=== PATIENT | female | born 1990 | race African-American/Black ===

== ENCOUNTER 2021-01-16 05:50 | Emergency (ER) | payer OTHER, SELFPAY ==
[2021-01-16 06:33] LABS: Absolute Lymphocytes (CBC) 2.1 K/uL (0.7-4.9); Basophils % 0.5 % (0-1.3); Hematocrit 33.8 % (36.0-45.0); Lymphocytes % 26.2 % (15.3-44.8); MPV 9.4 fL (7.6-11.3); RBC Red Blood Cell Count 4.07 M/uL (3.86-4.86)
[2021-01-16] MEDS ORDERED: ACETAMINOPHEN 500 MG TAB ONE (06:40)
[2021-01-16 06:45] LABS: Urine Blood NEGATIVE (NEG); Urine Glucose NEGATIVE (NEG); Urine Protein NEGATIVE (NEG); Urine Specific Gravity 1.025 (1.005-1.030); Urine pH 6.5 (5.0-7.0)
[2021-01-16 06:56] LABS: Urine Bacteria <20 /HPF (<20); Urine RBC <5 /HPF (NONE SEEN)
[2021-01-16 07:10] LABS: BUN Blood Urea Nitrogen 6 mg/dL (7-18); Bicarbonate 21 mmol/L (21-32); Glucose Level 85 mg/dL (74-106); HCG, Quantitative 78921 mIU/mL (1-3); Potassium 3.6 mmol/L (3.5-5.1); Sodium Level 138 mmol/L (136-145)
--- NOTE | 2021-01-16 08:23 | RAD REPORT ---
EXAM DESCRIPTION: US - Transvaginal OB - 01/16/2021 7:35 am CLINICAL HISTORY: lower back pain;Abd cramping, Pelvic pain COMPARISON: No comparisons FINDINGS: A single gestational sac is seen within the uterus. The shape of the sac is within normal limits for gestational age. Within the sac is a single pole with crown-rump length of 16 mm, co rrelating to estimated gestational age of 7 weeks 6 days. Estimated date of delivery is 08/29/2021. Heart rate is 146 BPM. Small right-sided subchorionic bleed measuring 3 x 1 cm. The placenta is not yet developed due to early gestational age. The maternal adnexa and ovaries are within normal limits. Normal Doppler blood flow was demonstrated to both ovaries. IMPRESSION: Single live early intrauterine gestation with estimated gestational age of 7 weeks 6 day s, DYLAN 08/29/2021. Small subchorionic bleed.
--- NOTE | 2021-01-16 09:19 | EDPHYS ---
Physician Documentation [facility] Name: Argentina Vela Age: 30 yrs Sex: Female : 1990 Arrival Date: 01/16/2021 Time: 05:53 Bed 8 Private MD: ED Physician Michele Graham HPI: 01/16 06:56 This 30 yrs old Black Female presents to ER via Ambulatory with complaints of Back Pain.mh7 06:57 The patient presents to the emergency department with abdominal pain, of the suprapubic mh7 area, right lower quadrant and left lower quadrant and low back area. 06:57 The estimated gestational age is 8 weeks. course: care: none, mh7 Leakage of Fluid: none appreciated, Ultrasound: the patient has not had an ultrasound, Risk/complications: no obvious risks or complications are appreciated. Previous pregnancies: in previous pregnancies patient has had vaginal delivery, no complications. Associated signs and symptoms: Pertinent positives: abdominal pain, lower back pain, Pertinent negatives: chest pain, diarrhea, dysuria, fever, frequency, nausea, ruptured membranes, seizure, shortness of breath, vaginal bleeding, vaginal discharge. 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 - Social history:: Smoking status: Patient denies any tobacco usage or history of. ROS: 07:00 Constitutional: Negative for fever, chills, and weight loss, Eyes: Negative for injury, mh7 pain, redness, and discharge, ENT: Negative for injury, pain, and discharge, Neck: Negative for injury, pain, and swelling, Cardiovascular: Negative for chest pain, palpitations, and edema, Respiratory: Negative for shortness of breath, cough, wheezing, and pleuritic chest pain, : Negative for injury, bleeding, discharge, and swelling, MS/Extremity: Negative for injury and deformity, Skin: Negative for injury, rash, and discoloration, Neuro: Negative for headache, weakness, numbness, tingling, and seizure, Psych: Negative for depression, anxiety, suicide ideation, homicidal ideation, and hallucinations, Allergy/Immunology: Negative for hives, rash, and allergies, Endocrine: Negative for neck swelling, polydipsia, polyuria, polyphagia, and marked weight changes, Hematologic/Lymphatic: Negative for swollen nodes, abnormal bleeding, and unusual bruising. Exam: 07:00 Constitutional: This is a well developed, well nourished patient who is awake, alert, mh7 and in no acute distress. Head/Face: Normocephalic, atraumatic. Eyes: Pupils equal round and reactive to light, extra-ocular motions intact. Lids and lashes normal. Conjunctiva and sclera are non-icteric and not injected. Cornea within normal limits. Periorbital areas with no swelling, redness, or edema. Neck: Trachea midline, no thyromegaly or masses palpated, and no cervical lymphadenopathy. Supple, full range of motion without nuchal rigidity, or vertebral point tenderness. No Meningismus. Chest/axilla: Normal chest wall appearance and motion. Nontender with no deformity. No lesions are appreciated. Cardiovascular: Regular rate and rhythm with a normal S1 and S2. No gallops, murmurs, or rubs. Normal PMI, no JVD. No pulse deficits. Respiratory: Lungs have equal breath sounds bilaterally, clear to auscultation and percussion. No rales, rhonchi or wheezes noted. No increased work of breathing, no retractions or nasal flaring. Abdomen/GI: Soft, non-tender, with normal bowel sounds. No distension or tympany. No guarding or rebound. No evidence of tenderness throughout. 07:00 Skin: Warm, dry with normal turgor. Normal color with no rashes, no lesions, and no evidence of cellulitis. MS/ Extremity: Pulses equal, no cyanosis. Neurovascular intact. Full, normal range of motion. Neuro: Awake and alert, GCS 15, oriented to person, place, time, and situation. Cranial nerves II-XII grossly intact. Motor strength 5/5 in all extremities. Sensory grossly intact. Cerebellar exam normal. Normal gait. Psych: Awake, alert, with orientation to person, place and time. Behavior, mood, and affect are within normal limits. 07:00 Back: pain, that is mild, of the left low back and right low back, normal spinal alignment noted, CVA tenderness, is absent, muscle spasm, is not present. Vital Signs: 06:05 Weight 77.11 kg (R); Height 5 ft. 6 in. (167.64 cm); Pain 8/10; lp1 06:27 BP 118 / 70; Pulse 66; Resp 18; Pulse Ox 99% ; ea 06:28 Temp 98.6; ea 08:00 BP 120 / 70; Pulse 64; Resp 16; Pulse Ox 99% on R/A; hb 06:05 Body Mass Index 27.44 (77.11 kg, 167.64 cm) lp1 MDM: 07:07 Transition of care: After a detail discussion of the patient's case, care is mh7 transferred to Michele Graham MD. 07:43 ED course: Signed out to me by Dr. Pappas, report is , lower back and abd pain, no rn prev ultrasound, + preg test, awaiting labs and u/s. Stable vitals. . 08:04 Patient medically screened. rn 09:16 Differential diagnosis: ectopic . Data reviewed: vital signs, nurses notes, internet assessor test result(s), radiologic studies, ultrasound, and as a result, I will discharge patient. Counseling: I had a detailed discussion with the patient and/or guardian regarding: the historical points, exam findings, and any diagnostic results supporting the discharge/admit diagnosis, lab results, radiology results, the need for outpatient follow up, to return to the emergency department if symptoms worsen or persist or if there are any questions or concerns that arise at home. Special discussion: I discussed with the patient/guardian in detail that at this point there is no indication for admission to the hospital. It is understood, however, that if the symptoms persist or worsen the patient needs to return immediately for re-evaluation. Based on the history and exam findings, there is no indication for further emergent testing or inpatient evaluation. I discussed with the patient/guardian the need to see the OB Gyne specialist for further evaluation of the symptoms. ED course: Lab called, verbal report is that blood type O+, will dc home with pelvic rest, and OB f/u, recommend prenatals. Denies any vaginal bleeding at this time. . 01/16 06:19 Order name: Quantitative Hcg; Complete Time: 08:27 [facility] 01/16 06:19 Order name: Abo/rh Typing [facility] 01/16 06:19 Order name: Basic Metabolic Panel; Complete Time: 08:27 [facility] 01/16 06:19 Order name: CBC with Diff; Complete Time: 06:56 7 01/16 06:37 Order name: Urine Microscopic Only; Complete Time: 07:00 em 01/16 06:38 Order name: Urine Dipstick--Ancillary (enter results); Complete Time: 06:56 lp1 01/16 06:19 Order name: Urine Test (obtain specimen); Complete Time: 06:34 [facility] 01/16 06:19 Order name: IV Saline Lock; Complete Time: 06:27 [facility] 01/16 06:19 Order name: Labs collected and sent; Complete Time: 06:27 [facility] 01/16 06:19 Order name: NPO; Complete Time: 06:21 [facility] 01/16 06:57 Order name: Urine Culture [facility] 01/16 07:35 Order name: Transvaginal OB; Complete Time: 08:27 [facility] 01/16 06:19 Order name: Urine Dipstick-Ancillary (obtain specimen); Complete Time: 06:34 [facility] 01/16 08:37 Order name: Labs - recollect needed: recollect type and screen, lable was unreadable; bd Complete Time: 08:42 Administered Medications: 06:29 Drug: Tylenol 1000 mg Route: PO; em 07:30 Follow up: Response: No adverse reaction Disposition: 01/16/21 09:18 Discharged to Home. Impression: Intrauterine , uncomplicated. - Condition is Stable. - Discharge Instructions: Back Pain in , First Trimester of . - Medication Reconciliation Form, Thank You Letter, Antibiotic Education, Prescription Opioid Use, Work release form, Family Work Release form. - Follow up: Private Physician; When: As needed; Reason: Recheck today's complaints, Re-evaluation by your physician. - Problem is new. - Symptoms have improved. Signatures: Dispatcher [employer] [facility] Imani Martinez Edgar, RN RN em Graham, Michele, MD MD rn Delarosa, LoretoNABEEL shanonn RN, Elena, RN RN ea Holmes, Maurice, MD MD mh7 Corrections: (The following items were deleted from the chart) 07:35 07:00 [facility]+[email or web address] ordered. EDMS EDMS 09:49 09:18 01/16/2021 09:18 Discharged to Home. Impression: Intrauterine , hb uncomplicated. Condition is Stable. Forms are Medication Reconciliation Form, Thank You Letter, Antibiotic Education, Prescription Opioid Use. Follow up: Private Physician; When: As needed; Reason: Recheck today's complaints, Re-evaluation by your physician. Problem is new. Symptoms have improved. rn
--- NOTE | 2021-01-16 09:19 | ER ---
Nurse's Notes [facility] Name: Argentina Vela Age: 30 yrs Sex: Female : 1990 Arrival Date: 01/16/2021 Time: 05:53 Bed 8 Private MD: Diagnosis: Intrauterine , uncomplicated Presentation: 01/16 06:03 Ebola Screen: No symptoms or risks identified at this time. Onset of symptoms was December. 06:04 Coronavirus screen: At this time, the client does not indicate any symptoms associated ea with coronavirus-19. 06:05 Risk Assessment: Do you want to hurt yourself or someone else? Patient reports no ea desire to harm self or others. 06:05 Method Of Arrival: Ambulatory ea 06:05 Initial Sepsis Screen: Does the patient meet any 2 criteria? No. Patient's initial ea sepsis screen is negative. Does the patient have a suspected source of infection? No. Patient's initial sepsis screen is negative. 06:05 Chief complaint: Patient states: Low back pain that began yesterday, reports pain lp1 severe this AM, denies pain radiating; Denies any trauma or falls; reports she is 7 weeks . Risk Assessment:. 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 - Social history:: Smoking status: Patient denies any tobacco usage or history of. Screenin:02 Abuse screen: Denies threats or abuse. Nutritional screening: No deficits noted. ea Tuberculosis screening: No symptoms or risk factors identified. Fall Risk None identified. Assessment: 06:11 General: Appears uncomfortable, Behavior is calm, cooperative, appropriate for age. ea Pain: Complains of pain in low back area. Neuro: Level of Consciousness is awake, alert, obeys commands, Oriented to person, place, time. Respiratory: Airway is patent Respiratory effort is even, unlabored, Respiratory pattern is regular, symmetrical. Derm: Skin is pink, warm \T\ dry. 07:20 Reassessment: Patient appears in no apparent distress at this time. Patient and/or sv family updated on plan of care and expected duration. Pain level reassessed. Patient is alert, oriented x 3, equal unlabored respirations, skin warm/dry/pink. 07:30 Reassessment: Patient appears in no apparent distress at this time. Patient and/or hb family updated on plan of care and expected duration. Pain level reassessed. Patient is alert, oriented x 3, equal unlabored respirations, skin warm/dry/pink. 08:30 Reassessment: Patient appears in no apparent distress at this time. Patient and/or hb family updated on plan of care and expected duration. Pain level reassessed. Patient is alert, oriented x 3, equal unlabored respirations, skin warm/dry/pink. Vital Signs: 06:05 Weight 77.11 kg (R); Height 5 ft. 6 in. (167.64 cm); Pain 8/10; lp1 06:27 BP 118 / 70; Pulse 66; Resp 18; Pulse Ox 99% ; ea 06:28 Temp 98.6; ea 08:00 BP 120 / 70; Pulse 64; Resp 16; Pulse Ox 99% on R/A; hb 06:05 Body Mass Index 27.44 (77.11 kg, 167.64 cm) lp1 ED Course: 05:53 Patient arrived in ED. am4 06:02 Patient has correct armband on for positive identification. Bed in low position. Call ea light in reach. Side rails up X 1. 06:03 Patient placed in an exam room, on a stretcher, on pulse oximetry. ea 06:05 Oswald Dahl MD is Attending Physician. 7 06:07 Triage completed. lp1 06:21 Luis E Hawkins, NABEEL is Primary Nurse. em 06:25 Inserted saline lock: 22 gauge in right antecubital area, using aseptic technique. ds4 Blood collected. 06:34 Urine collected: clean catch specimen, clear. em 07:04 Radiology exam delayed due to lab results not completed at this time. test aa4 not completed at this time. 07:43 Attending Physician role handed off by Oswald Dahl MD rn 07:43 Michele Graham MD is Attending Physician. rn 08:03 Primary Nurse role handed off by Luis E Hawkins RN 08:03 Lynne Dacosta RN is Primary Nurse. sv 09:49 No provider procedures requiring assistance completed. IV discontinued, intact, sv bleeding controlled, No redness/swelling at site. Pressure dressing applied. Administered Medications: 06:29 Drug: Tylenol 1000 mg Route: PO; em 07:30 Follow up: Response: No adverse reaction hb Outcome: 09:18 Discharge ordered by MD. rn 09:49 Patient left the ED. hb 09:49 Discharged to home ambulatory, instructions given by Loreto LEES 09:49 Condition: stable 09:49 Discharge instructions given to patient, Instructed on discharge instructions, follow up and referral plans. Demonstrated understanding of instructions, follow-up care. Signatures: Dispatcher [employer] Lynne Hayes RN RN Luis E Hawkins RN RN Leann Bey aa4 Michele Graham MD MD rn Pena, Laura RN RN lp1 Santi Mcmillan ds4 Loreto Delarosa RN RN Lara Garg RN RN ea Holmes, Maurice, MD MD 7 Shanice Gary am4 Corrections: (The following items were deleted from the chart) 07:35 07:34 In radiology for OB Limited+US.RAD.BRZ. EDMS EDMS
[2021-01-16 09:55] VITALS: O2SAT 99
[2021-01-16 09:56] VITALS: TEMP 98.6
[2021-01-16 09:57] VITALS: BP 120/70
== END 2021-01-16 09:49 | disposition home or self-care (01) ==
LOC: ER 05:50
DX: O36.5910 Maternal care for other known or suspected poor fetal growth, first trimester, not applicable or unspecified (principal)
CPT/HCPCS: 36415; 76817; 80048; 81003; 81015; 84702; 85025; 86900; 86901; 87086; 87088; 99284

== ENCOUNTER 2022-02-11 13:17 | Emergency (ER) | payer OTHER ==
--- OUTSIDE RECORDS SUMMARY | 2022-02-11 13:21 | XMS REPORT | Continuity of Care Document ---
:1990 Author Organization [facility] t Address [address] [place] [address] Care Team Providers Name Role Phone PCP, PATIENT DOES NOT HAVE A Primary Care Physician Unavaila ble Antonio PARSONS Attending Clinician Unavailable Antonio Parsons MD Attending Clinician Doctor Unassigned, Name Attending Clinician Unavailable Dandy Fan MD Attending Clinician Angella Law MD Attending Clinician Antonio PARSONS Admitting Clinician Unavailable Antonio Parsons MD Admitting Clinician Payers Payer Name Policy Type Policy Number Effective Date Expiration Date S ource Problems Condition Condition Condition Status Onset Resolution Last Treating Co mments Source Name Details Category Date Date Treatment Clinician Date Disease Active 2020-10 Univers (normal (normal 0-27 ity of [place] vaginal 00 [facility] delivery) delivery) Bran ch Encounter Encounter Disease Active 2020-10 Uni vers for for 0-26 ity of elective elective 00:00: [place] induction induction 00 [facility] labor of labor Branch Obesity Obesity Disease Active Univers (BMI (BMI 8-18 ity of 30-39.9) 30-39.9) 00:00: [place] [address] Medical Branch Anemia of Anemia of Disease Active Uni vers mother in mother in 8-18 ity of , , [place] antepartum antepartum 00 De dical Branch 39 weeks 39 weeks Disease Active Unive rs gestation gestation 5-11 ity of of of 00:00: [place] 00 [facility] Supervisio Supervisio Disease Active U nivers n of n of 4-14 ity of normal normal 00:00: [place] intrauteri intrauteri 00 Me dical ne ne [place] in in multigravi multigravi da, third da, third trimester trimester Missed Missed Disease Active Univers menses menses 4-14 ity of 00:00: [address] Allergies, Adverse Reactions, Alerts Allergy Allergy Status Severity Reaction(s) Onset Inactive Treating Comm ents Source Name Type Date Date Clinician NO KNOWN Drug Active Univers ALLERGIE Class ity of S [facility] Social History Social Habit Start Date Stop Date Quantity Comments Source ASSERTION 2020-12-06 University of 00:00:00 [facility] History SDOH University o f Alcohol Frequency [facility] edical Branch History SDOH University o f Alcohol Std [place] Medical Drinks [place] History SDSC University o f Alcohol Binge [place] Medic al [place] Exposure to Not sure [facility] SARS-CoV-2 [facility] (event) [place] Alcohol intake 2021-10-03 2021-10-03 Ex-drinker University 00:00:00 00:00:00 (finding) [facility] Tobacco use and 2021-02-07 2021-02-07 Never used Universit y of exposure 00:00:00 00:00:00 [facility] Alcohol Comment 2021-02-07 2021-02-07 Socially Universit y of 00:00:00 00:00:00 [facility] Sex [birth year] At [birth year] Universit y of 00:00:00 00:00:00 [facility] Smoking Status Start Date Stop Date Source Never smoker [facility] Medications Ordered Filled Start Stop Current Ordering Indication Dosage Frequency Signature Comments Components Source Medication Medication Date Date Medication? Clinician (SIG) Name Name 2020-10 Yes Take by Unive rs 25/iron 2-07 mouth. ity of fum/folic/d 11:29: [facility] 54 Medical (-1 Branch ORAL) 2020-10 Yes Take by Unive rs 25/iron 2-07 mouth. ity of fum/folic/d 11:29: [facility] 54 Medical (-1 Branch ORAL) FLUoxetine 2020-10 Yes [id number] 10mg Take 1 U nivers 10 mg 2-07 capsule by ity of capsule 00:00: mouth [place] 00 daily. Medical Branch norelgestro 2020-10 Yes [id number] 1{patch Apply 1 Univers min-ethinyl 2-07 } Patch to ity of estradiol 00:00: skin [place] (XULANE) 00 weekly. Medical 150-35 Branch mcg/24 hr patch FLUoxetine 2020-10 Yes [id number] 10mg Take 1 U nivers 10 mg 2-07 capsule by ity of capsule 00:00: mouth [place] 00 daily. Medical Branch norelgestro 2020-10 Yes [id number] 1{patch Apply 1 Univers min-ethinyl 2-07 } Patch to ity of estradiol 00:00: skin [place] (XULANE) 00 weekly. Medical 150-35 Branch mcg/24 hr patch FLUoxetine 2020-10 Yes [id number] 10mg Take 1 U nivers 10 mg 1-09 capsule by ity of capsule 00:00: mouth [place] 00 daily. Medical Branch FLUoxetine 2020-10- No [id number] 10mg Take 1 Univers 10 mg 09 12-07 capsule by ity of capsule 00:00: 00:00 mouth [place] 00 :00 daily. Medical Branch witch Freda 2020-10 Yes Topical, Un lena (TUCKS) 50 0-28 CONTINUOUS ity of % topical 11:52: PRN, [place] pad 00 Starting Medical on Shantel Branch 08/24/21 at 0652, Until Discontinu ed, Routine, Pain (scale 4-6), perineal pain relief 2020-10 Yes Take by Unive rs 25/iron 0-28 mouth. ity of fum/folic/d 11:31: [place] bermudez 27 Medical (-1 Branch ORAL) 2020-10 Yes Take by Unive rs 25/iron 0-28 mouth. ity of fum/folic/d 11:31: [place] bermudez 27 Medical (-1 Branch ORAL) ibuprofen 2020-10 Yes [id number] 600mg Take 1 U nivers 600 mg 0-28 tablet by ity of tablet 00:00: mouth [place] 00 every 6 Medical (six) Branch hours as needed (Pain). Take with food or milk. ibuprofen 2020-10 Yes [id number] 600mg Take 1 U nivers 600 mg 0-28 tablet by ity of tablet 00:00: mouth [place] 00 every 6 Medical (six) Branch hours as needed (Pain). Take with food or milk. ibuprofen 2020-10 Yes [id number] 600mg Take 1 U nivers 600 mg 0-28 tablet by ity of tablet 00:00: mouth [place] 00 every 6 Medical (six) Branch hours as needed (Pain). Take with food or milk. ibuprofen 2020-10 Yes [id number] 600mg Take 1 U nivers 600 mg 0-28 tablet by ity of tablet 00:00: mouth [place] 00 every 6 Medical (six) Branch hours as needed (Pain). Take with food or milk. HYDROcodone 2020-10 Yes 1{tbl} 1 tablet, Univers -acetaminop 0-27 Oral, ity of hen (NORCO 05:28: Q6HPRN, [place] 5) 5-325 mg 16 Starting Medi haily tablet 1 on Wed Branch tablet 08/23/21 at 0028, Until Discontinu ed, Routine, Pain (scale 7-10) ibuprofen 2020-10 Yes 600mg 600 mg, Univ ers (IBU) 0-27 Oral, ity of tablet 600 05:28: Q6HPRN, [place] mg 16 Starting Medical on Wed Branch 08/23/21 at 0028, Until Discontinu ed, Routine, Pain (scale 4-6) acetaminoph 2020-10 Yes 650mg 650 mg, Un lena en 0-27 Oral, ity of (TYLENOL) 05:28: Q6HPRN, [place] tablet 650 16 Starting Medic al mg on Wed Branch 08/23/21 at 0028, Until Discontinu ed, Routine, Pain (scale 1-3) diphenhydrA 2020-10 Yes 25mg 25 mg, Univ ers MINE 0-27 Oral, ity of (BENADRYL) 05:28: Q6HPRN, [place] tablet 25 16 Starting Medica l mg on Wed Branch 08/23/21 at 0028, Until Discontinu ed, Routine, Sleep, Itching ondansetron 2020-10 Yes 4mg 4 mg, Slow Univers (ZOFRAN 0-27 IV Push, ity of (PF)) 05:28: Q8HPRN, [place] injection 4 15 Starting Medi haily mg on Wed Branch 08/23/21 at 0028, Until Discontinu ed, Routine, Nausea and Vomiting (N/V) magnesium 2020-10 Yes 30mL 30 mL, Univer s hydroxide 027 Oral, ity of (MILK OF 05:28: QDAILYPRN, [place] as MAGNESIA) 15 Starting Medica l 400 mg/5 mL on Sat Branch suspension 08/23/21 30 mL at 0028, Until Discontinu ed, Routine, Constipati on benzocaine- 2020-10 Yes Topical, Un lena menthol 0-27 PRN, ity of (DERMOPLAST 05:28: [place] 20-0.5 % 15 on Sat Medical topical 08/23/21 Branch spray at 0028, Until Discontinu ed, Routine, Perineum discomfort FENTanyl 2 2020-10- No Intra-op Un lena mcg/mL + 008-23 ity of bupivacaine 15:00: 11:27 [place] 0.125% in 00 :15 Medical NS 250 mL Branch epidural bag lidocaine-e 2020-10- No Intraderma Univers pinephrine 008-23 l, ONCE ity o f (XYLOCAINE 14:53: 11:27 INTRA [place] W/EPINEPHRI 00 :15 PROCEDURE, Me dical NE) 1.5 Starting Branch %-1:200,000 on e injection 08/22/21 at 0953, Until Discontinu ed, Routine, Intra-op D5W-LR IV 2020-10- No 1000mL at 125 Uni vers infusion 008-23 mL/hr, IV ity o f 1,000 mL 09:30: 05:29 Infusion, [place] 00 :32 CONTINUOUS Medical , Starting Branch on e 08/22/21 at 0430, Until Sat08/23/21 at 0029, Routine proMETHazin 2020-10- No 25mg 25 mg, IV Univers e 008-23 Piggyback, ity of (PHENERGAN) 09:17: 05:29 Q4HPRN, [place] 25 mg in 05 :32 Starting Medical NaCl 0.9% on Sat Branch (NS) 50 mL 08/22/21 IV at 0417, piggyback Until Sat08/23/21 at 0029, Routine, Nausea and Vomiting (N/V) LR 1000 mL 2020-10- No 2mU/min at 6-120 Univers + oxytocin 0-26 10-27 mL/hr, IV ity of 20 units IV 09:17: 05:29 Infusion, [place] Solution 05 :32 TITRATE, Medical Starting Branch on Sat08/22/21 at 0417, Until Sat08/23/21 at 0029, ANYA lactated 2020-10- No 500mL at 999 Unive rs ringers IV 0-26 10-27 mL/hr, 500 it y of infusion 09:17: 05:29 mL, IV [place] 500 mL 05 :32 Infusion, Medical PRN - SEE Branch INSTRUCTIO NS, Starting on Sat08/22/21 at 0417, Until Sat08/23/21 at 0029, Routine 2020-10 Yes Take by Unive rs 25/iron 0-26 mouth. ity of fum/folic/d 04:10: [place] bermudez 14 Medical (-1 Branch ORAL) ferrous Yes 325mg Take 1 Univers sulfate 325 8-13 tablet by ity of mg (65 mg 00:00: mouth 3 [place] iron) 00 (three) Medical tablet times Branch daily with meals. ferrous Yes 325mg Take 1 Univers sulfate 325 8-13 tablet by ity of mg (65 mg 00:00: mouth 3 [place] iron) 00 (three) Medical tablet times Branch daily with meals. ferrous 0 Yes 325mg Take 1 Univers sulfate 325 8-13 tablet by ity of mg (65 mg 00:00: mouth 3 [place] iron) 00 (three) Medical tablet times Branch daily with meals. ferrous 0 Yes 325mg Take 1 Univers sulfate 325 8-13 tablet by ity of mg (65 mg 00:00: mouth 3 [place] iron) 00 (three) Medical tablet times Branch daily with meals. ferrous 0 Yes 325mg Take 1 Univers sulfate 325 8-13 tablet by ity of mg (65 mg 00:00: mouth 3 [place] iron) 00 (three) Medical tablet times Branch daily with meals. Immunizations Ordered Filled Immunization Date Status Comments [facility] Immunization Name Name TD 2021-06-29 Completed [facility] 00:00:00 [facility] TD 2021-06-29 Completed [facility] 00:00:00 [facility] TD 2021-06-29 Completed University of 00:00:00 [facility] TDAP 2021-06-29 Completed University of 00:00:00 [facility] TDAP 2021-06-29 Completed University of 00:00:00 [facility] Influenza Virus 2021-02-07 Completed Universit y of Vaccine 00:00:00 [facility] Influenza Virus 2021-02-07 Completed Universit y of Vaccine 00:00:00 [facility] Influenza Virus 2021-02-07 Completed Universit y of Vaccine 00:00:00 [facility] Influenza Virus 2021-02-07 Completed Universit y of Vaccine 00:00:00 [facility] Influenza Virus 2021-02-07 Completed Universit y of Vaccine 00:00:00 [facility] Vital Signs Vital Name Observation Time Observation Value Comments Source Systolic blood 2021-10-03 17:29:00 120 mm[Hg] Univer sity of pressure [facility] Diastolic blood 2021-10-03 17:29:00 76 mm[Hg] Unive rsity of [facility] Heart rate 2021-10-03 17:29:00 88 /min Universi ty [facility] Body temperature 2021-10-03 17:29:00 36.78 Samantha [facility] Respiratory rate 2021-10-03 17:29:00 18 /min [facility] Body height 2021-10-03 17:29:[facility] [address] [facility] Body weight 2021-10-03 17:29:00 83[facility]553 [facility] BMI 2021-10-03 17:29:00 29.73 kg/m2 [facility] ty [facility] Oxygen saturation in 2021-10-03 17:29:00 98 /min [facility] Arterial blood by [facility] Pulse oximetry Branch Systolic blood 2021-09-05 17:40:00 114 mm[Hg] Univer sity of pressure [facility] Diastolic blood 2021-09-05 17:40:00 76 mm[Hg] Unive rsity of pressure [facility] Heart rate 2021-09-05 17:40:00 86 /min Universi ty of [facility] Body temperature 2021-09-05 17:40:00 36.89 Samantha [facility] Respiratory rate 2021-09-05 17:40:00 18 /min [facility] Body height 2021-09-05 17:40:00 177[facility]3 [facility] Body weight 2021-09-05 17:40:00 83.462 kg [facility] BMI 2021-09-05 17:40:00 26.55 kg/m[facility] Systolic blood 2021-08-24 12:15:00 116 mm[Hg] Univer sity of [facility] Diastolic blood 2021-08-24 12:15:00 72 mm[Hg] [facility] Heart rate 2021-08-24 12:15:00 76 /min [facility] Body temperature 2021-08-24 12:15:00 36.78 Samantha [facility] Respiratory rate 2021-08-24 12:15:00 16 /min [facility] Oxygen saturation in 2021-08-24 12:15:00 100 /min [facility] Arterial blood by [facility] Pulse oximetry [place] Body height 2021-08-22 09:30:[address] [facility] Body weight 2021-08-22 09:30:00 90.719 kg 200lb [facility] BMI 2021-08-22 09:30:00 32.30 kg/m2 [facility] Procedures Procedure Date / Time Performing Clinician Source Performed CONSENT FOR 2021-10-03 06:01:00 Doctor Unassigned, No [facility] CONTRACEPTION Name [facility] POCT TEST 2021-10-03 00:00:00 Adum, Leighann Alvarez [facility] CBC WITH DIFF 2021-08-24 10:09:00 Adum, Leighann Alvarez [facility] CENTRAL NEURAXIAL BLOCK 2021-08-22 17:00:15 Issa Fan [facility] CBC WITH DIFF 2021-08-22 09:54:00 Adum, Leighann Alvarez [facility] HEPATITIS B SURFACE 2021-08-22 09:54:00 Adum, Leighann Alvarez [facility] ADC OR WILLIE ONLY - 2021-08-22 09:54:00 Adum, Leighann choi [facility] RPR Medical Branch HIV 1/2 AG-AB WITH 2021-08-22 09:54:00 Adum, Leighann Henderson[place] y of [place] REFLEX [facility] Branch HB ABO GROUPING 2021-08-22 09:49:00 Adum, Leighann Alvarez [place] o f [facility] CONSENT/REFUSAL FOR 2021-08-15 17:16:39 [facility] Name Medical Branch ASSIGNMENT OF BENEFITS 2021-08-15 17:16:06 Doctor Unassigned, No [facility] Name [facility] Encounters Start End Encounter Admission Attending Care Care Encounter Source Date/Time Date/Time Type Type Clinicians Facility Department ID 2022-10-04 2022-10-04 Outpatient R ADUM, [facility] [id number] Univers 13:30:00 13:30:00 LEIGHANN [id number] ity [facility] 2021-10-03 2021-10-03 Routine Adum, [facility] 1.2.840.114 [id number] Univers 11:19:05 12:12:45 Leighann CASTANEDA 350.1.13.10 ity of Visit [place] 4.2.7.2.686 Marvin oreilly PROFESSIO [id number] [facility] 2021-10-03 2021-10-03 Outpatient R ADUM, [facility] [id number] Univers 11:15:00 12:12:45 LEIGHANN ity [facility] 2021-10-03 2021-10-03 Outpatient R ADUM, [facility] [id number] Univers 11:15:00 11:15:00 LEIGHANN [id number] ity [facility] 2021-10-03 2021-10-03 Orders Doctor [place] [id number] [id number] Univers 00:00:00 00:00:00 Only Unassigned, KU[place] 350.1.13.10 ity of [place] [facility] 4.2.7.2.686 Major [place] [id number] [place] [address] Branch 2021-09-05 2021-09-05 Routine Adum, [facility] [id number] Univers 11:16:39 12:05:52 Leighann CASTANEDA 350.1.13.10 ity of [place] 4[place]2.[place] [facility] [id number] De dical [place] [address] Branch [facility] 2021-09-05 2021-09-05 Outpatient R AD, [facility] [id number] Univers 11:15:00 12:05:52 LEIGHANN ity [facility] 2021-09-05 2021-09-05 Outpatient R AD, [facility] [id number] Univers 11:15:00 11:15:00 LEIGHANN [id number] ity [facility] 2021-08-22 2021-08-24 Inpatient P [facility] NING [id number] Univers 04:10:00 11:30:00 LEIGHANN ity [facility] 2021-08-22 2021-08-24 [facility] [id number] Univers 04:10:00 11:30:00 Encounter Leighann Alvarez LEONEL [id number] ity of [facility] 4.2.7.2.686 [place] [id number] [address] 2021-08-22 2021-08-23 Anesthesia Issa Fan [facility] 1.2.840. [id number] Univers 09:37:00 06:10:00 Event Kevyn Perales 350.1.13.10 ity of [place] 4[place].7.2.686 [place] [id number] [address] 2021-08-21 2021-08-21 Outpatient R [facility] [id number] Univers 11:30:00 11:30:00 [id number] ity [facility] 2021-08-21 2021-08-21 Outpatient R [facility] [id number] Univers 11:30:00 11:30:00 ity [facility] 2021-08-15 2021-08-15 Outpatient R ADUM, [facility] [id number] Univers 11:00:00 11:00:00 LEIGHANN [id number] ity [facility] 2021-08-15 2021-08-15 Outpatient R ADUM, [facility] [id number] Univers 11:00:00 11:00:00 LEIGHANN ity [facility] 2021-08-09 2021-08-09 Outpatient R ADUM, [facility] [id number] Univers 10:45:00 10:45:00 LEIGHANN [id number] ity [facility] 2021-08-09 2021-08-09 Outpatient R ADUM, [facility] [id number] Univers 10:45:00 10:45:00 LEIGHANN ity [facility] 2021-08-03 2021-08-03 Outpatient R [facility] [id number] Univers 13:00:00 13:00:00 [id number] ity [facility] 2021-08-03 2021-08-03 Outpatient R [facility] [id number] Univers 13:00:00 13:00:00 ity [facility] 2021-08-02 2021-08-02 Outpatient R ADUM, [facility] [id number] Univers 16:00:00 16:00:00 LEIGHANN [id number] ity [facility] 2021-08-02 2021-08-02 Outpatient R ADUM, [facility] [id number] Univers 16:00:00 16:00:00 LEIGHANN [facility] 2021-07-26 2021-07-26 Outpatient R ADUM, [facility] [id number] Univers 14:15:00 14:15:00 LEIGHANN [id number] ity [facility] 2021-07-26 2021-07-26 Outpatient R ADUM, [facility] [id number] Univers 14:15:00 14:15:00 [facility] 2021-07-13 2021-07-13 Outpatient R ADUM, [facility] [id number] Univers 14:15:00 14:15:00 LEIGHANN [id number] ity [facility] 2021-07-13 2021-07-13 Outpatient R ADUM, [facility] [id number] Univers 14:15:00 14:15:00 LEIGHANN ity [facility] 2021-06-29 2021-06-29 Outpatient R ADUM, [facility] [id number] Univers 14:00:00 14:00:00 LEIGHANN [id number] ity [facility] 2021-06-29 2021-06-29 Outpatient R ADUM, [facility] [id number] Univers 14:00:00 14:00:00 LEIGHANN ity [facility] 2021-06-14 2021-06-14 Outpatient R ADUM, [facility] [id number] Univers 14:15:00 14:15:00 LEIGHANN [id number] ity [facility] 2021-06-14 2021-06-14 Outpatient R ADUM, [facility] [id number] Univers 14:15:00 14:15:00 LEIGHANN [facility] 2021-06-06 2021-06-06 Outpatient R ADUM, [facility] [id number] Univers 10:45:00 10:45:00 LEIGHANN [id number] [facility] 2021-06-06 2021-06-06 Outpatient R ADUM, [facility] [id number] Univers 08:30:00 08:30:00 LEIGHANN [facility] 2021-05-17 2021-05-17 Outpatient R ADUM, [facility] [id number] Univers 15:30:00 15:30:00 LEIGHANN [id number] ity [facility] 2021-05-17 2021-05-17 Outpatient R ADUM, [facility] [id number] Univers 15:30:00 15:30:00 LEIGHANN ity [facility] 2021-05-05 2021-05-05 Outpatient R ADUM, [facility] [id number] Univers 14:15:00 14:15:00 LEIGHANN [facility] 2021-05-05 2021-05-05 Outpatient R [facility] [id number] Univers 13:00:00 13:00:00 [id number] ity [facility] 2021-05-02 2021-05-02 Outpatient R ADUM, [facility] [id number] Univers 10:30:00 10:30:00 LEIGHANN [id number] [facility] 2021-05-02 2021-05-02 Outpatient R ADUM, [facility] [id number] Univers 10:30:00 10:30:00 LEIGHANN [facility] 2021-04-07 2021-04-07 Outpatient R [facility] [id number] Univers 13:00:00 13:00:00 [id number] [facility] 2021-04-07 2021-04-07 Outpatient P [facility] [id number] Univers 13:00:00 13:00:[facility] 2021-04-04 2021-04-04 Outpatient R ADUM, [facility] [id number] Univers 10:30:00 10:30:00 LEIGHANN [id number] [facility] 2021-04-04 2021-04-04 Outpatient R ADUM, [facility] [id number] Univers 10:30:00 10:30:00 LEIGHANN [facility] 2021-03-07 2021-03-07 Outpatient R ADUM, [facility] [id number] Univers 10:15:00 10:15:00 LEIGHANN [id number] [facility] 2021-03-07 2021-03-07 Outpatient R ADUM, [facility] [id number] Univers 10:15:00 10:15:00 LEIGHANN [facility] 2021-02-13 2021-02-13 Outpatient R [facility] [id number] Univers 13:00:00 13:00:00 [id number] [facility] 2021-02-13 2021-02-13 Outpatient R ADUM, [facility] [id number] Univers 13:00:00 13:00:00 LEIGHANN [facility] 2021-02-07 2021-02-07 Outpatient R ADUM, [facility] [id number] Univers 13:30:00 13:30:00 LEIGHANN [id number] [facility] 2021-02-07 2021-02-07 Outpatient R ADUM, [facility] [id number] Univers 13:30:00 13:30:00 LEIGHANN [facility] Results Test Description Test Time Test Comments Results Result Comments Source POCT TEST 2021-10-03 18:14:00 Test Item Value Reference Range Interpretation Comme nts POCT PREG (test code = 1605) Negative On board controls acceptable with C Line (test code = 3574) Yes POCT PREG LOT # (test code = 3575) POCT PREG TEST DATE (test code = 3576) Lab Interpretation (test code = 70948-7) Normal [facility] with [id number] 11:51:09 Test Item Value Reference Range Interpretation Comments WBC (test code = See_Comment H [Automated 6690-2) message] The sy stem which generated this result transmitted reference range : 4.30 - 11.10 10*3/?L. The reference range was not used to interpret this result as normal/abnormal . RBC (test code = See_Comment [Automated 789-8) message] The sy stem which generated this result transmitted reference range : 3.93 - 5.25 10*6/?L. The reference range was not used to interpret this result as normal/abnormal . HGB (test code = 10.9 g/dL 11.6-15.0 L 718-7) HCT (test code = 34.3 % 35.7-45.2 L 4544-3) MCV (test code = 86.4 fL 80.6-95.5 787-2) MCH (test code = 27.5 pg 25.9-32.8 785-6) MCHC (test code = 31.8 g/dL 31.6-35.1 786-4) RDW-SD (test code = 51.9 fL 39.0-49.9 H 30161-9) RDW-CV (test code = 16.5 % 12.0-15.5 H 788-0) PLT (test code = See_Comment [Automated 777-3) message] The sy stem which generated this result transmitted reference range : 166 - 358 10*3/ ?L. The reference r cy was not used to interpret this result as normal/abnormal . MPV (test code = 12.5 fL 9.5-12.9 78648-8) NRBC/100 WBC (test See_Comment [Automat ed code = [id number]) message] The system which generated this result transmitted reference range : 0.0 - 10.0 /100 WBCs. The refer ence range was not u sed to interpret th is result as normal/abnormal . NRBC x10^3 (test code <0.01 See_Comment [Auto mated = [id number]) message] The s ystem which generated this result transmitted reference range : 10*3/?L. The reference range was not used to interpret this result as normal/abnormal . GRAN MAT (NEUT) % 70.1 % (test code = 770-8) IMM GRAN % (test code 0.90 % = 6759343236) LYMPH % (test code = 21.7 % 736-9) MONO % (test code = 5.5 % 5905-5) EOS % (test code = 1.5 % 713-8) BASO % (test code = 0.3 % 706-2) GRAN MAT x10^3(ANC) 8.87 10*3/uL 1.88-7.09 H (test code = 4453922502) IMM GRAN x10^3 (test 0.11 10*3/uL 0.00-0.06 H code = 2846431682) LYMPH x10^3 (test code 2.75 10*3/uL 1.32-3.29 = 731-0) MONO x10^3 (test code 0.70 10*3/uL 0.33-0.92 = 742-7) EOS x10^3 (test code = 0.19 10*3/uL 0.03-0.39 711-2) BASO x10^3 (test code 0.04 10*3/uL 0.01-0.07 = 704-7) Lab Interpretation Abnormal (test code = 36192-2) [facility] OR WILLIE ONLY - [id number] 05:29:57 Test Item Value Reference Range Interpretation Comments RPR (Qualitative) (test code = Nonreactive Nonreactive 12995-8) Lab Interpretation (test code = Normal 40314-9) [facility] [id number] 16:56:42 Test Item Value Reference Range Interpretation Comments HBsAg Semi-Quantitative (test code = Negative Negative 5195-3) [facility] AG-AB WITH [id number] 13:40:38 Test Item Value Reference Range Interpretation Comments HIV Negative Negative Semi-quantitative (test code = 84459-4) ALECIA (test code = Non-reactive for HIV-1 ALECIA) antigen and HIV-1/HIV-2 antibodies. ?No laboratory evidence of HIV infection. ?Repeat in 2-4 weeks if acute HIV infection is suspected. [facility] Screen - ONCE [id number] 11:32:58 Test Item Value Reference Range Interpretation Comments ABO & RH (test code O Positive Performe d at [facility] = 20) Laboratory Serv [facility] [address] [place], [place] [id number] Free: [phone] A No. [id number] IAT (test code = Negative Performed a t [facility] 1185) Laboratory Serv [facility] [address] [place], [place] [id number] Free: [phone] A No. [id number] [facility] with [id number] 10:31:06 Test Item Value Reference Range Interpretation Comments WBC (test code = See_Comment [Automated 2390-2) message] The sy stem which generated this result transmitted reference range : 4.30 - 11.10 10*3/?L. The reference range was not used to interpret this result as normal/abnormal . RBC (test code = See_Comment L [Automated 329-8) message] The sy stem which generated this result transmitted reference range : 3.93 - 5.25 10*6/?L. The reference range was not used to interpret this result as normal/abnormal . HGB (test code = 10.1 g/dL 11.6-15.0 L 718-7) HCT (test code = 32.1 % 35.7-45.2 L 4544-3) MCV (test code = 86.5 fL 80.6-95.5 787-2) MCH (test code = 27.2 pg 25.9-32.8 785-6) MCHC (test code = 31.5 g/dL 31.6-35.1 L 786-4) RDW-SD (test code = 52.9 fL 39.0-49.9 H 42489-9) RDW-CV (test code = 16.7 % 12.0-15.5 H 788-0) PLT (test code = See_Comment [Automated 777-3) message] The sy stem which generated this result transmitted reference range : 166 - 358 10*3/ ?L. The reference r cy was not used to interpret this result as normal/abnormal . MPV (test code = 12.0 fL 9.5-12.9 45905-5) NRBC/100 WBC (test See_Comment [Automat ed code = 7623256069) message] The system which generated this result transmitted reference range : 0.0 - 10.0 /100 WBCs. The refer ence range was not u sed to interpret th is result as normal/abnormal . NRBC x10^3 (test code <0.01 See_Comment [Auto mated = [id number]) message] The s ystem which generated this result transmitted reference range : 10*3/?L. The reference range was not used to interpret this result as normal/abnormal . GRAN MAT (NEUT) % 66.4 % (test code = 770-8) IMM GRAN % (test code 1.10 % = 7264847557) LYMPH % (test code = 23.5 % 736-9) MONO % (test code = 7.6 % 5905-5) EOS % (test code = 1.1 % 713-8) BASO % (test code = 0.3 % 706-2) GRAN MAT x10^3(ANC) 6.30 10*3/uL 1.88-7.09 (test code = 8264860522) IMM GRAN x10^3 (test 0.10 10*3/uL 0.00-0.06 H code = 0314463550) LYMPH x10^3 (test code 2.23 10*3/uL 1.32-3.29 = 731-0) MONO x10^3 (test code 0.72 10*3/uL 0.33-0.92 = 742-7) EOS x10^3 (test code = 0.10 10*3/uL 0.03-0.39 711-2) BASO x10^3 (test code 0.03 10*3/uL 0.01-0.07 = 704-7) Lab Interpretation Abnormal (test code = 44898-6) [facility]
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
[2022-02-11 15:52] LABS: Urine Blood Negative (Negative); Urine Glucose Negative (Negative); Urine Protein Negative (Negative); Urine Specific Gravity 1.015 (1.005-1.030)
[2022-02-11] MEDS ORDERED: HYDROCODONE/APAP 10/325 TAB ONE (16:08)
[2022-02-11] MEDS ORDERED: NA CHLORIDE 0.9% 1,000 ML ONE (16:08)
[2022-02-11] MEDS ORDERED: IBUPROFEN 400 MG TAB ONE (16:12)
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
[2022-02-11 18:31] VITALS: BP 114/84; TEMP 97.2; O2SAT 100
[2022-02-11 23:07] LABS: Urine Specific Gravity/Preg 1.015 (1.005-1.030)
== END 2022-02-11 17:59 | disposition home or self-care (01) ==
LOC: ER 13:17
DX: S22.32XA Fracture of one rib, left side, initial encounter for closed fracture (principal); Y04.2XXA Assault by strike against or bumped into by another person, initial encounter
CPT/HCPCS: 81025; 81003; 70450; 72125; 71260; 74177; 99284; Q9967; J7030

== ENCOUNTER 2022-03-06 16:38 | Emergency (ER) | payer OTHER ==
--- OUTSIDE RECORDS SUMMARY | 2022-03-06 16:41 | XMS REPORT | Continuity of Care Document ---
:1990 Author Organization [facility] t Address [address] [place] [phone] Care Team Providers Name Role Phone PCP, DOES NOT HAVE A Primary Care Physician Unavailable Antonio PARSONS Attending Clinician Unavailable Antonio Parsons [...] Date Treatment Clinician Date Disease Active 2020-10 NPI:183 (normal (normal 0-27 [id number] spontaneou spontaneou 00:00: s vaginal s vaginal 00 delivery) delivery) Encounter Encounter Disease Active 2020-10 NPI :183 for for 0-26 3602205 elective elective 00:00: induction induction 00 of labor of labor Obesity Obesity Disease Active NPI:183 (BMI (BMI 8-18 0620470 30-39.9) 30-39.9) 00:00: 00 Anemia of Anemia of Disease Active NPI :183 mother in mother in 06-14 1318 781 , , 00:00: antepartum antepartum 00 39 weeks 39 weeks Disease Active NPI:1 83 gestation gestation 5-11 1318 781 of of 00:00: 00 Supervisio Supervisio Disease Active N PI:183 n of n of 4-14 8692024 normal normal 00:00: intrauteri intrauteri 00 ne ne in in multigravi multigravi da, third da, third trimester trimester Missed Missed Disease Active NPI:183 menses menses 4-14 [id number] 00:00: 00 Allergies, Adverse Reactions, Alerts Allergy Allergy Status Severity Reaction(s) Onset Inactive Treating Comm ents Source Name Type Date Date Clinician NO KNOWN Drug Active NPI:183 ALLERGIE Class [id number] S Social History Social Habit Start Date Stop Date Quantity Comments Source ASSERTION 2020-12-06 00:00:00 History SDOH NPI:[id number] Alcohol Frequency History SDOH NPI:[id number] 81 Alcohol Std Drinks History SDOH NPI:[id number] 81 Alcohol Binge Exposure to Not sure NPI:[id number] 1 SARS-CoV-2 (event) Alcohol intake 2021-10-03 2021-10-03 Ex-drinker NPI:[id number] 6179 00:00:00 00:00:00 (finding) Tobacco use and 2021-02-07 2021-02-07 Never used NPI:08694 71067 exposure 00:00:00 00:00:00 Alcohol Comment 2021-02-07 2021-02-07 Socially NPI:[id number] 97889 00:00:00 00:00:00 Sex [birth year] At [birth year] NPI:[id number] 03374 00:00:00 00:00:00 Smoking Status Start Date Stop Date Source Never smoker Medications Ordered Filled Start Stop Current Ordering Indication Dosage Frequency Signature Comments Components Source Medication Medication Date Date Medication? Clinician (SIG) Name Name 2020-10 Yes Take by NPI:1 83 25/iron 2-07 mouth. [id number] fum/folic/d 11:29: bermudez 54 (-1 ORAL) 2020-10 Yes Take by NPI:1 83 25/iron 2-07 mouth. 5670512 fum/folic/d 11:29: bermudez 54 (-1 ORAL) FLUoxetine 2020-10 Yes [id number] 10mg Take 1 N PI:183 10 mg 2-07 capsule by 6852335 capsule 00:00: mouth 00 daily. norelgestro 2020-10 Yes [id number] 1{patch Apply 1 NPI:183 min-ethinyl 2-07 } Patch to 1318 781 estradiol 00:00: skin (XULANE) 00 weekly. 150-35 mcg/24 hr patch FLUoxetine 2020-10 Yes [id number] 10mg Take 1 N PI:183 10 mg 2-07 capsule by 8529588 capsule 00:00: mouth 00 daily. norelgestro 2020-10 Yes [id number] 1{patch Apply 1 NPI:183 min-ethinyl 2-07 } Patch to 1318 781 estradiol 00:00: skin (XULANE) 00 weekly. 150-35 mcg/24 hr patch FLUoxetine 2020-10 Yes [id number] 10mg Take 1 N PI:183 10 mg 1-09 capsule by 2198963 capsule 00:00: mouth 00 daily. FLUoxetine 2020-10- No [id number] 10mg Take 1 NPI:183 10 mg 1-09 12-07 capsule by [id number] capsule 00:00: 00:00 mouth 00 :00 daily. manoj Barba 2020-10 Yes Topical, [employer] I:183 (TUCKS) 50 0-28 CONTINUOUS 131 8781 % topical 11:52: PRN, pad 00 Starting on Shantel 08/24/21 at 0652, Until Discontinu ed, Routine, Pain (scale 4-6), perineal pain relief 2020-10 Yes Take by NPI:1 83 25/iron 0-28 mouth. [id number] fum/folic/d 11:31: bermudez 27 (-1 ORAL) 2020-10 Yes Take by NPI:1 83 25/iron 0-28 mouth. [id number] fum/folic/d 11:31: bermudez 27 (-1 ORAL) ibuprofen 2020-10 Yes [id number] 600mg Take 1 N PI:183 600 mg 0-28 tablet by 7880508 tablet 00:00: mouth 00 every 6 (six) hours as needed (Pain). Take with food or milk. ibuprofen 2020-10 Yes [id number] 600mg Take 1 N PI:183 600 mg 0-28 tablet by 3442213 tablet 00:00: mouth 00 every 6 (six) hours as needed (Pain). Take with food or milk. ibuprofen 2020-10 Yes [id number] 600mg Take 1 N PI:183 600 mg 0-28 tablet by 6725026 tablet 00:00: mouth 00 every 6 (six) hours as needed (Pain). Take with food or milk. ibuprofen 2020-10 Yes [id number] 600mg Take 1 N PI:183 600 mg 0-28 tablet by [id number] tablet 00:00: mouth 00 every 6 (six) hours as needed (Pain). Take with food or milk. HYDROcodone 2020-10 Yes 1{tbl} 1 tablet, NPI:183 -acetaminop 0-27 Oral, [id number] hen (NORCO 05:28: Q6HPRN, 5) 5-325 mg 16 Starting tablet 1 on Sat tablet 08/23/21 at 0028, Until Discontinu ed, Routine, Pain (scale 7-10) ibuprofen 2020-10 Yes 600mg 600 mg, NPI: 183 (IBU) 0-27 Oral, [id number] tablet 600 05:28: Q6HPRN, mg 16 Starting on Sat08/23/21 at 0028, Until Discontinu ed, Routine, Pain (scale 4-6) acetaminoph 2020-10 Yes 650mg 650 mg, [employer] I:183 en 0-27 Oral, [id number] (TYLENOL) 05:28: Q6HPRN, tablet 650 16 Starting mg on Sat08/23/21 at 0028, Until Discontinu ed, Routine, Pain (scale 1-3) diphenhydrA 2020-10 Yes 25mg 25 mg, NPI: 183 MINE 0-27 Oral, [id number] (BENADRYL) 05:28: Q6HPRN, tablet 25 16 Starting mg on Sat08/23/21 at 0028, Until Discontinu ed, Routine, Sleep, Itching ondansetron 2020-10 Yes 4mg 4 mg, Slow NPI:183 (ZOFRAN 0-27 IV Push, [id number] (PF)) 05:28: Q8HPRN, injection 4 15 Starting mg on Sat08/23/21 at 0028, Until Discontinu ed, Routine, Nausea and Vomiting (N/V) magnesium 2020-10 Yes 30mL 30 mL, NPI:18 3 hydroxide 0-27 Oral, [id number] (MILK OF 05:28: QDAILYPRN, MAGNESIA) 15 Starting 400 mg/5 mL on Sat suspension 08/23/21 30 mL at 0028, Until Discontinu ed, Routine, Constipati on benzocaine- 2020-10 Yes Topical, [employer] I:183 menthol 0-27 PRN, 6712786 (DERMOPLAST 05:28: Starting ) 20-0.5 % 15 on Sat topical 08/23/21 spray at 0028, Until Discontinu ed, Routine, Perineum discomfort FENTanyl 2 2020-10- No Intra-op [employer] I:183 mcg/mL + 0- 10-27 8664775 bupivacaine 15:00: 11:27 0.125% in 00 :15 NS 250 mL epidural bag lidocaine-e 2020-10- No Intraderma NPI:183 pinephrine 0-26 10-27 l, ONCE 61082 81 (XYLOCAINE 14:53: 11:27 INTRA W/EPINEPHRI 00 :15 PROCEDURE, NE) 1.5 Starting %-1:200,000 on Tue injection 08/22/21 at 0953, Until Discontinu ed, Routine, Intra-op D5W-LR IV 2020-10- No 1000mL at 125 NPI :183 infusion 0-26 10-27 mL/[place], [place] [address] 81 1,000 mL 09:30: 05:29 Infusion, 00 :32 CONTINUOUS , Starting on Sat08/22/21 at 0430, Until Sat08/23/21 at 0029, Routine proMETHazin 2020-10- No 25mg 25 mg, IV NPI:183 e 0-22 08-27 Piggyback, [id number] (PHENERGAN) 09:17: 05:29 Q4HPRN, 25 mg in 05 :32 Starting NaCl 0.9% on Sat (NS) 50 mL 08/22/21 IV at 0417, piggyback Until Sat08/23/21 at 0029, Routine, Nausea and Vomiting (N/V) LR 1000 mL 2020-10- No 2mU/min at 6-120 NPI:183 + oxytocin 0-26 10-27 mL/hr, IV 131 8781 20 units IV 09:17: 05:29 Infusion, Solution 05 :32 TITRATE, Starting on Sat08/22/21 at 0417, Until Sat08/23/21 at 0029, ANYA lactated 2020-10- No 500mL at 999 NPI:1 83 ringers IV 0-26 10-27 mL/hr, 500 13 97294 infusion 09:17: 05:29 mL, IV 500 mL 05 :32 Infusion, PRN - SEE INSTRUCTIO NS, Starting on Sat08/22/21 at 0417, Until Sat08/23/21 at 0029, Routine 2020-10 Yes Take by NPI:1 83 25/iron 0-26 mouth. [id number] fum/folic/d 04:10: bermudez 14 (- ORAL) ferrous Yes 325mg Take 1 NPI:183 sulfate 325 8-13 tablet by 131 8781 mg (65 mg 00:00: mouth 3 iron) 00 (three) tablet times daily with meals. ferrous Yes 325mg Take 1 NPI:183 sulfate 325 8-13 tablet by 131 8781 mg (65 mg 00:00: mouth 3 iron) 00 (three) tablet times daily with meals. ferrous Yes 325mg Take 1 NPI:183 sulfate 325 8-13 tablet by 131 8781 mg (65 mg 00:00: mouth 3 iron) 00 (three) tablet times daily with meals. ferrous 0 Yes 325mg Take 1 NPI:183 sulfate 325 8-13 tablet by 131 8781 mg (65 mg 00:00: mouth 3 iron) 00 (three) tablet times daily with meals. ferrous Yes 325mg Take 1 NPI:183 sulfate 325 8-13 tablet by 131 8781 mg (65 mg 00:00: mouth 3 iron) 00 (three) tablet times daily with meals. Immunizations Ordered Immunization Filled Immunization Date Status Commen ts Source Name Name TDAP 2021-06-29 Completed 00:00:00 TDAP 2021-06-29 Completed 00:00:00 TDAP 2021-06-29 Completed 00:00:00 TDAP 2021-06-29 Completed 00:00:00 TDAP 2021-06-29 Completed 00:00:00 Influenza Virus 2021-02-07 Completed NPI:[id number] 70610 Vaccine 00:00:00 Influenza Virus 2021-02-07 Completed NPI:29704 49712 Vaccine 00:00:00 Influenza Virus 2021-02-07 Completed NPI:51185 44865 Vaccine 00:00:00 Influenza Virus 2021-02-07 Completed NPI:71876 87422 Vaccine 00:00:00 Influenza Virus 2021-02-07 Completed NPI:80822 08161 Vaccine 00:00:00 Vital Signs Vital Name Observation Time Observation Value Comments Source Systolic blood pressure 2021-10-03 17:29:00 120 mm[Hg] Diastolic blood 2021-10-03 17:29:00 76 mm[Hg] NPI:1 [id number] pressure Heart rate 2021-10-03 17:29:00 88 /min NPI:1831 [id number] Body temperature 2021-10-03 17:29:00 36.78 Samantha Respiratory rate 2021-10-03 17:29:00 18 /min Body height 2021-10-03 17:29:00 167.6 cm NPI:1831 263730 Body weight 2021-10-03 17:29:00 83.553 kg NPI:1831 [id number] BMI 2021-10-03 17:29:00 29.73 kg/m2 NPI:1831 205899 Oxygen saturation in 2021-10-03 17:29:00 98 /min Arterial blood by Pulse oximetry Systolic blood pressure 2021-09-05 17:40:00 114 mm[Hg] Diastolic blood 2021-09-05 17:40:00 76 mm[Hg] NPI:1 [id number] pressure Heart rate 2021-09-05 17:40:00 86 /min NPI:1831 571764 Body temperature 2021-09-05 17:40:00 36.89 Samantha Respiratory rate 2021-09-05 17:40:00 18 /min Body height 2021-09-05 17:40:00 177.3 cm NPI:1831 326754 Body weight 2021-09-05 17:40:00 83.462 kg NPI:1831 050283 BMI 2021-09-05 17:40:00 26.55 kg/m2 NPI:1831 666333 Systolic blood pressure 2021-08-24 12:15:00 116 mm[Hg] Diastolic blood 2021-08-24 12:15:00 72 mm[Hg] NPI:1 [id number] pressure Heart rate 2021-08-24 12:15:00 76 /min NPI:1831 191117 Body temperature 2021-08-24 12:15:00 36.78 Samantha Respiratory rate 2021-08-24 12:15:00 16 /min Oxygen saturation in 2021-08-24 12:15:00 100 /min Arterial blood by Pulse oximetry Body height 2021-08-22 09:30:00 167.6 cm NPI:1831 053265 Body weight 2021-08-22 09:30:00 90.719 kg 200lb NPI:1831 665623 BMI 2021-08-22 09:30:00 32.30 kg/m2 NPI:1831 176618 Procedures Procedure Date / Time Performed Performing Clinician [facility] e CONSENT FOR CONTRACEPTION 2021-10-03 06:01:00 Doctor Unassigned, No Name POCT TEST 2021-10-03 00:00:00 AdumLeighann NPI:1831 [id number] CBC WITH DIFF 2021-08-24 10:09:00 Adum, Leighann Alvarez NPI:[id number] CENTRAL NEURAXIAL BLOCK 2021-08-22 17:00:15 Issa Fan CBC WITH DIFF 2021-08-22 09:54:00 AdumLeighann NPI:[id number] HEPATITIS B SURFACE 2021-08-22 09:54:00 Adum, Leighann Alvarez NPI:1831 [id number] ANTIGEN ADC OR WILLIE ONLY - RPR 2021-08-22 09:54:00 Adum, Leighann Alvarez [employer] I:[id number] HIV 1/2 AG-AB WITH REFLEX 2021-08-22 09:54:00 AdumLeighann [employer] I:[id number] HB ABO GROUPING 2021-08-22 09:49:00 Adum, Leighann Alvarez NPI:[id number] CONSENT/REFUSAL FOR 2021-08-15 17:16:39 Doctor Unassigned, No [employer] I:[id number] DIAGNOSIS AND TREATMENT Name ASSIGNMENT OF BENEFITS 2021-08-15 17:16:06 Doctor Unassigned, No Name Encounters Start End Encounter Admission Attending Care Care Encounter Source Date/Time Date/Time Type Type Clinicians Facility Department ID 2022-10-04 2022-10-04 Outpatient R AD, [facility] [id number] -[id number] NPI:183 13:30:00 13:30:00 LEIGHANN [id number] 1 2021-10-03 2021-10-03 [facility]114 [id number] NPI:183 11:19:05 12:12:45 Leighann OTOOLE 350.1.13.10 [id number] Visit [place] 4.2.7.2.686 PROFESSJESSICA [id number] [address] 2021-10-03 2021-10-03 Outpatient R ADUM, [facility] [id number] NPI:183 11:15:00 12:12:45 LEIGHANN [id number] 1 2021-10-03 2021-10-03 Outpatient R AD, [facility] [id number] -[id number] NPI:183 11:15:00 11:15:00 LEIGHANN [id number] 1 2021-10-03 2021-10-03 Orders Doctor [place] 1.2.840.114 [id number] NPI:183 00:00:00 00:00:00 Only UnassignedKUNAL 350.1.13.10 [id number] [place] [address]686 [id number] 009 2021-09-05 2021-09-05 [facility].2.[facility].114 [id number] NPI:183 11:16:39 12:05:52 Leighann OTOOLE 350.1.13.10 [id number] Visit [place] 4.7.2.686 [facility] [id number] [facility] [address] [facility] 2021-09-05 2021-09-05 Outpatient R ADUM, [facility] [id number] NPI:183 11:15:00 12:05:52 LEIGHANN [id number] 1 2021-09-05 2021-09-05 Outpatient R ADUM, [facility] [id number] -[id number] NPI:183 11:15:00 11:15:00 LEIGHANN [id number] 1 2021-08-22 2021-08-24 Inpatient P ADUM, [facility] NING [id number] NPI:183 04:10:00 11:30:00 LEIGHANN [id number] 1 2021-08-22 2021-08-24 [facility] 1.2.840.114 [id number] NPI:183 04:10:00 11:30:00 Encounter Leighann OTOOLE 350.1.13.10 [id number] [place] 4.2.7.2.686 [place] [id number] 3 2021-08-22 2021-08-23 Anesthesia Issa Fan [facility] 1.2.840. 114 [id number] NPI:183 09:37:00 06:10:00 Event Angella Kevyncelia Otoole 350.1.13.10 [id number] [place] 4.2.7.2.686 [place] [id number] 3 2021-08-21 2021-08-21 Outpatient R [facility] [id number] -[id number] NPI:183 11:30:00 11:30:00 [id number] 2021-08-21 2021-08-21 Outpatient R [facility] [id number] NPI:183 11:30:00 11:30:00 [id number] 1 2021-08-15 2021-08-15 Outpatient R ADUM, [facility] [id number] -[id number] NPI:183 11:00:00 11:00:00 LEIGHANN [id number] 1 2021-08-15 2021-08-15 Outpatient R ADUM, [facility] [id number] NPI:183 11:00:00 11:00:00 LEIGHANN [id number] 1 2021-08-09 2021-08-09 Outpatient R ADUM, [facility] [id number] -[id number] NPI:183 10:45:00 10:45:00 LEIGHANN [id number] 1 2021-08-09 2021-08-09 Outpatient R ADUM, [facility] [id number] NPI:183 10:45:00 10:45:00 LEIGHANN [id number] 1 2021-08-03 2021-08-03 Outpatient R [facility] [id number] -[id number] NPI:183 13:00:00 13:00:00 [id number] 1 2021-08-03 2021-08-03 Outpatient R [facility] [id number] NPI:183 13:00:00 13:00:00 [id number] 2021-08-02 2021-08-02 Outpatient R ADUM, [facility] [id number] -[id number] NPI:183 16:00:00 16:00:00 LEIGHANN [id number] 1 2021-08-02 2021-08-02 Outpatient R ADUM, [facility] [id number] NPI:183 16:00:00 16:00:00 LEIGHANN [id number] 1 2021-07-26 2021-07-26 Outpatient R ADUM, [facility] [id number] -20 NPI:183 14:15:00 14:15:00 LEIGHANN [id number] 1 2021-07-26 2021-07-26 Outpatient R ADUM, [facility] [id number] NPI:183 14:15:00 14:15:00 LEIGHANN [id number] 1 2021-07-13 2021-07-13 Outpatient R ADUM, [facility] [id number] -[id number] NPI:183 14:15:00 14:15:00 LEIGHANN [id number] 1 2021-07-13 2021-07-13 Outpatient R ADUM, [facility] [id number] NPI:183 14:15:00 14:15:00 LEIGHANN [id number] 1 2021-06-29 2021-06-29 Outpatient R ADUM, [facility] [id number] -[id number] NPI:183 14:00:00 14:00:00 LEIGHANN [id number] 1 2021-06-29 2021-06-29 Outpatient R ADUM, [facility] [id number] NPI:183 14:00:00 14:00:00 LEIGHANN [id number] 1 2021-06-14 2021-06-14 Outpatient R ADUM, [facility] [id number] -[id number] NPI:183 14:15:00 14:15:00 LEIGHANN [id number] 1 2021-06-14 2021-06-14 Outpatient R ADUM, [facility] [id number] NPI:183 14:15:00 14:15:00 LEIGHANN [id number] 1 2021-06-06 2021-06-06 Outpatient R ADUM, [facility] [id number] -[id number] NPI:183 10:45:00 10:45:00 LEIGHANN [id number] 1 2021-06-06 2021-06-06 Outpatient R ADUM, [facility] [id number] NPI:183 08:30:00 08:30:00 LEIGHANN [id number] 1 2021-05-17 2021-05-17 Outpatient R ADUM, [facility] [id number] -[id number] NPI:183 15:30:00 15:30:00 LEIGHANN [id number] 1 2021-05-17 2021-05-17 Outpatient R ADUM, [facility] [id number] NPI:183 15:30:00 15:30:00 LEIGHANN [id number] 1 2021-05-05 2021-05-05 Outpatient R ADUM, [facility] [id number] NPI:183 14:15:00 14:15:00 LEIGHANN [id number] 1 2021-05-05 2021-05-05 Outpatient R [facility] [id number] -20 NPI:183 13:00:00 13:00:00 [id number] 1 2021-05-02 2021-05-02 Outpatient R ADUM, [facility] [id number] -[id number] NPI:183 10:30:00 10:30:00 LEIGHANN [id number] 1 2021-05-02 2021-05-02 Outpatient R ADUM, [facility] [id number] NPI:183 10:30:00 10:30:00 LEIGHANN [id number] 1 2021-04-07 2021-04-07 Outpatient R [facility] [id number] -[id number] NPI:183 13:00:00 13:00:00 [id number] 2021-04-07 2021-04-07 Outpatient P [facility] [id number] NPI:183 13:00:00 13:00:00 [id number] 1 2021-04-04 2021-04-04 Outpatient R ADUM, [facility] [id number] -[id number] NPI:183 10:30:00 10:30:00 LEIGHANN [id number] 1 2021-04-04 2021-04-04 Outpatient R ADUM, [facility] [id number] NPI:183 10:30:00 10:30:00 LEIGHANN [id number] 1 2021-03-07 2021-03-07 Outpatient R ADUM, [facility] [id number] -[id number] NPI:183 10:15:00 10:15:00 LEIGHANN [id number] 1 2021-03-07 2021-03-07 Outpatient R ADUM, [facility] [id number] NPI:183 10:15:00 10:15:00 LEIGHANN [id number] 1 2021-02-13 2021-02-13 Outpatient R [facility] [id number] -[id number] NPI:183 13:00:00 13:00:00 [id number] 1 2021-02-13 2021-02-13 Outpatient R ADUM, [facility] [id number] NPI:183 13:00:00 13:00:00 LEIGHANN [id number] 1 2021-02-07 2021-02-07 Outpatient R ADUM, [facility] [id number] -[id number] NPI:183 13:30:00 13:30:00 LEIGHANN [id number] 1 2021-02-07 2021-02-07 Outpatient R ADUM, [facility] [id number] NPI:183 13:30:00 13:30:00 LEIGHANN [id number] 1 Results Test Description Test Time Test Comments Results Result Comments Source POCT TEST 2021-10-03 18:14:00 Test Item Value Reference Range Interpretation Comme nts POCT PREG (test code = 1605) Negative On board controls acceptable with C Line (test code = 3574) Yes POCT PREG LOT # (test code = 3575) POCT PREG TEST DATE (test code = 3576) Lab Interpretation (test code = 97288-3) Normal NPI:[id number] with [id number] 11:51:09 Test Item Value Reference Range Interpretation [...] (test code = 51.9 fL 39.0-49.9 H 73976-4) RDW-CV (test code = 16.5 % 12.0-15.5 H 788-0) PLT (test code = See_Comment [Automated 777-3) message] The sy stem which generated this result transmitted reference range : 166 - 358 10*3/ ?L. The reference r cy was not used to interpret this result as normal/abnormal . MPV (test code = 12.5 fL 9.5-12.9 05992-3) NRBC/100 WBC (test See_Comment [Automat ed code = 1390089583) message] The system which generated this result transmitted reference range : 0.0 - 10.0 /100 WBCs. The refer ence range was not u sed to interpret th is result as normal/abnormal . NRBC x10^3 (test code <0.01 See_Comment [Auto mated = 3104692224) message] The s ystem which generated this result transmitted reference range : 10*3/?L. The reference range was not used to interpret this result as normal/abnormal . GRAN MAT (NEUT) % 70.1 % (test code = 770-8) IMM GRAN % (test code 0.90 % = 2566892635) LYMPH % (test code = 21.7 % 736-9) MONO % (test code = 5.5 % 5905-5) EOS % (test code = 1.5 % 713-8) BASO % (test code = 0.3 % 706-2) GRAN MAT x10^3(ANC) 8.87 10*3/uL 1.88-7.09 H (test code = 7798853985) IMM GRAN x10^3 (test 0.11 10*3/uL 0.00-0.06 H code = 1120744730) LYMPH x10^3 (test code 2.75 10*3/uL 1.32-3.29 = 731-0) MONO x10^3 (test code 0.70 10*3/uL 0.33-0.92 = 742-7) EOS x10^3 (test code = 0.19 10*3/uL 0.03-0.39 711-2) BASO x10^3 (test code 0.04 10*3/uL 0.01-0.07 = 704-7) Lab Interpretation Abnormal (test code = 03552-0) NPI:[id number] OR WILLIE ONLY - [id number] 05:29:57 Test Item Value Reference Range Interpretation Comments RPR (Qualitative) (test code = Nonreactive Nonreactive 78529-0) Lab Interpretation (test code = Normal 32694-7) NPI:[id number] B Surface [id number] 16:56:42 Test Item Value Reference Range Interpretation Comments HBsAg Semi-Quantitative (test code = Negative Negative 5195-3) NPI:[id number] 1/2 AG-AB WITH [id number] 13:40:38 Test Item Value Reference Range Interpretation Comments HIV Negative Negative Semi-quantitative (test code = 85894-6) ALECIA (test code = Non-reactive for HIV-1 ALECIA) antigen and HIV-1/HIV-2 antibodies. ?No laboratory evidence of HIV infection. ?Repeat in 2-4 weeks if acute HIV infection is suspected. NPI:[id number] and Screen - ONCE [id number] 11:32:58 Test Item Value Reference Range Interpretation Comments ABO & RH (test code O Positive Performe d at [facility] = 20) Laboratory Serv [facility] [address] [place], [place] [address]Toll Free: [phone] A No. [id number] IAT (test code = Negative Performed a t [facility] 1185) Laboratory Serv [facility] [address] [place], [place] [address]Toll Free: [phone] A No. [id number] NPI:[id number] with [id number] 10:31:06 Test Item Value Reference Range Interpretation Comments WBC (test code = See_Comment [Automated 3790-2) message] The sy stem which generated this result transmitted reference range : 4.30 - 11.10 10*3/?L. The reference range was not used to interpret this result as normal/abnormal . RBC (test code = See_Comment L [Automated 599-8) message] The sy stem which generated this [...] (test code = 52.9 fL 39.0-49.9 H 83913-7) RDW-CV (test code = 16.7 % 12.0-15.5 H 788-0) PLT (test code = See_Comment [Automated 777-3) message] The sy stem which generated this result transmitted reference range : 166 - 358 10*3/ ?L. The reference r cy was not used to interpret this result as normal/abnormal . MPV (test code = 12.0 fL 9.5-12.9 40272-7) NRBC/100 WBC (test See_Comment [Automat ed code = 0389605338) message] The system which generated this result transmitted reference range : 0.0 - 10.0 /100 WBCs. The refer ence range was not u sed to interpret th is result as normal/abnormal . NRBC x10^3 (test code <0.01 See_Comment [Auto mated = 1879856762) message] The s ystem which generated this result transmitted reference range : 10*3/?L. The reference range was not used to interpret this result as normal/abnormal . GRAN MAT (NEUT) % 66.4 % (test code = 770-8) IMM GRAN % (test code 1.10 % = [id number]) LYMPH % (test code = 23.5 % 736-9) MONO % (test code = 7.6 % 5905-5) EOS % (test code = 1.1 % 713-8) BASO % (test code = 0.3 % 706-2) GRAN MAT x10^3(ANC) 6.30 10*3/uL 1.88-7.09 (test code = [id number]) IMM GRAN x10^3 (test 0.10 10*3/uL 0.00-0.06 H code = [id number]) LYMPH x10^3 (test code 2.23 10*3/uL 1.32-3.29 = 731-0) MONO x10^3 (test code 0.72 10*3/uL 0.33-0.92 = 742-7) EOS x10^3 (test code = 0.10 10*3/uL 0.03-0.39 711-2) BASO x10^3 (test code 0.03 10*3/uL 0.01-0.07 = 704-7) Lab Interpretation Abnormal (test code = 69184-6)
--- NOTE | 2022-03-06 19:47 | ER ---
Nurse's Notes [facility] Name: Argentina Mcgowan Age: 31 yrs Sex: Female : 1990 Arrival Date: 03/06/2022 Time: 16:41 Bed 26 Private MD: Diagnosis: SARS-associated coronavirus as the cause of diseases classified elsewhere Presentation: 03/06 18:07 Chief complaint: Patient states: I started to have cough yesterday and headache today jb4 with nausea. Coronavirus screen: Client presents with at least one sign or symptom that may indicate coronavirus-19. Standard/surgical mask placed on the client. Provider contacted for isolation considerations. Ebola Screen: No symptoms or risks identified at this time. Initial Sepsis Screen: Does the patient meet any 2 criteria? No. Patient's initial sepsis screen is negative. Does the patient have a suspected source of infection? No. Patient's initial sepsis screen is negative. Risk Assessment: Do you want to hurt yourself or someone else? Patient reports no desire to harm self or others. Onset of symptoms was March 06, 2022. Transition of care: patient was not received from another setting of care. 18:07 Method Of Arrival: Ambulatory jb4 18:07 Acuity: ANDREA 4 jb4 Historical: - Allergies: 18:10 No Known Allergies; jb4 - Home Meds: 18:10 None [Active]; jb4 - PMHx: 18:10 None; jb4 - PSHx: 18:10 None; jb4 - Immunization history:: Adult Immunizations up to date. - Social history:: Smoking status: Patient denies any tobacco usage or history of. Patient/guardian denies using alcohol, street drugs. Screenin:00 Abuse screen: Denies threats or abuse. Nutritional screening: No deficits noted. jb4 Tuberculosis screening: No symptoms or risk factors identified. Fall Risk None identified. Assessment: 18:00 General: Appears in no apparent distress. comfortable, Behavior is calm, cooperative, jb4 appropriate for age. Pain: Denies pain. Neuro: Level of Consciousness is awake, alert, obeys commands, Oriented to person, place, time, situation. Cardiovascular: Patient's skin is warm and dry. Respiratory: Airway is patent Respiratory effort is even, unlabored, Respiratory pattern is regular, symmetrical. GI: No signs and/or symptoms were reported involving the gastrointestinal system. : No signs and/or symptoms were reported regarding the genitourinary system. EENT: No signs and/or symptoms were reported regarding the EENT system. Derm: Skin is intact, Skin is dry, Skin is normal, Skin temperature is warm. Musculoskeletal: Circulation, motion, and sensation intact. Range of motion: intact in all extremities. 19:32 Reassessment: Patient appears in no apparent distress at this time. Patient and/or jb4 family updated on plan of care and expected duration. Pain level reassessed. Patient is alert, oriented x 3, equal unlabored respirations, skin warm/dry/pink. 20:17 Reassessment: Patient appears in no apparent distress at this time. Patient and/or jb4 family updated on plan of care and expected duration. Pain level reassessed. Patient is alert, oriented x 3, equal unlabored respirations, skin warm/dry/pink. Vital Signs: 18:07 BP 120 / 70; Pulse 100; Resp 16; Temp 98.4(TE); Pulse Ox 100% on R/A; Weight 77.11 kg jb4 (R); Height 5 ft. 6 in. (167.64 cm) (R); Pain 0/10; 18:07 Body Mass Index 27.44 (77.11 kg, 167.64 cm) jb4 ED Course: 16:41 Patient arrived in ED. ds1 17:37 [facility] 17:37 Edmar Romo MD is Attending Physician. [facility] 17:50 PHCP role handed off by Donis Cain PA [facility] 17:50 Brandan Sellers PA is PHCP. jr8 18:00 Patient has correct armband on for positive identification. jb4 18:00 No provider procedures requiring assistance completed. Patient did not have IV access jb4 during this emergency room visit. 18:10 Triage completed. jb4 18:12 Arm band placed on right wrist. jb4 19:31 Stef Talley, NABEEL is Primary Nurse. jb4 Administered Medications: No medications were administered Outcome: 19:46 Discharge ordered by . jr8 20:17 Discharged to home ambulatory. jb4 20:17 Condition: stable 20:17 Discharge instructions given to patient, Instructed on discharge instructions, follow up and referral plans. medication usage, Demonstrated understanding of instructions, follow-up care, medications, Prescriptions given X 1. 20:17 Patient left the ED. jb4 Signatures: Donis Cain PA PA jmm Sanford, Demi ds1 Brandan Sellers PA PA jr8 Stef Talley, RN RN jb4
--- NOTE | 2022-03-06 19:47 | EDPHYS ---
Physician Documentation [facility] Name: Argentina Mcgowan Age: 31 yrs Sex: Female : 1990 Arrival Date: 03/06/2022 Time: 16:41 Bed 26 Private MD: ED Physician Edmar Romo HPI: 03/06 20:10 This 31 yrs old Black Female presents to ER via Ambulatory with complaints of Fever, jr8 Cough. 20:10 The patient reports fever, not measured (subjective). Onset: The symptoms/episode jr8 began/occurred acutely, yesterday. Modifying factors: The patient has had contact with sick other family member. Associated signs and symptoms: Pertinent positives: headache. Severity of symptoms: At their worst the symptoms were mild in the emergency department the symptoms are unchanged. The patient has not experienced similar symptoms in the past. The patient has not recently seen a physician. Historical: - Allergies: 18:10 No Known Allergies; jb4 - Home Meds: 18:10 None [Active]; jb4 - PMHx: 18:10 None; jb4 - PSHx: 18:10 None; jb4 - Immunization history:: Adult Immunizations up to date. - Social history:: Smoking status: Patient denies any tobacco usage or history of. Patient/guardian denies using alcohol, street drugs. ROS: 20:10 Eyes: Negative for injury, pain, redness, and discharge, ENT: Negative for injury, jr8 pain, and discharge, Neck: Negative for injury, pain, and swelling, Cardiovascular: Negative for chest pain, palpitations, and edema, Back: Negative for injury and pain, MS/Extremity: Negative for injury and deformity, Skin: Negative for injury, rash, and discoloration. 20:10 Constitutional: Positive for fever. 20:10 Respiratory: Positive for cough, Negative for dyspnea on exertion, shortness of breath, sputum production, wheezing. 20:10 Abdomen/GI: Positive for nausea, Negative for abdominal pain, vomiting, diarrhea. 20:10 Neuro: Positive for headache. Exam: 20:10 Constitutional: This is a well developed, well nourished patient who is awake, alert, jr8 and in no acute distress. Eyes: Pupils equal round and reactive to light, extra-ocular motions intact. Lids and lashes normal. Conjunctiva and sclera are non-icteric and not injected. Cornea within normal limits. Periorbital areas with no swelling, redness, or edema. ENT: Nares patent. No nasal discharge, no septal abnormalities noted. Tympanic membranes are normal and external auditory canals are clear. Oropharynx with no redness, swelling, or masses, exudates, or evidence of obstruction, uvula midline. Mucous membranes moist. Neck: Trachea midline, no thyromegaly or masses palpated, and no cervical lymphadenopathy. Supple, full range of motion without nuchal rigidity, or vertebral point tenderness. No Meningismus. Cardiovascular: Regular rate and rhythm with a normal S1 and S2. No gallops, murmurs, or rubs. Normal PMI, no JVD. No pulse deficits. Respiratory: Lungs have equal breath sounds bilaterally, clear to auscultation and percussion. No rales, rhonchi or wheezes noted. No increased work of breathing, no retractions or nasal flaring. Abdomen/GI: Soft, non-tender, with normal bowel sounds. No distension or tympany. No guarding or rebound. No evidence of tenderness throughout. Back: No spinal tenderness. No costovertebral tenderness. Full range of motion. Skin: Warm, dry with normal turgor. Normal color with no rashes, no lesions, and no evidence of cellulitis. MS/ Extremity: Pulses equal, no cyanosis. Neurovascular intact. Full, normal range of motion. Neuro: Awake and alert, GCS 15, oriented to person, place, time, and situation. Cranial nerves II-XII grossly intact. Motor strength 5/5 in all extremities. Sensory grossly intact. Vital Signs: 18:07 BP 120 / 70; Pulse 100; Resp 16; Temp 98.4(TE); Pulse Ox 100% on R/A; Weight 77.11 kg jb4 (R); Height 5 ft. 6 in. (167.64 cm) (R); Pain 0/10; 18:07 Body Mass Index 27.44 (77.11 kg, 167.64 cm) jb4 MDM: 18:01 Patient medically screened. [facility] 20:10 Data reviewed: vital signs, nurses notes, lab test result(s), and as a result, I will [facility] discharge patient. Data interpreted: Pulse oximetry: on room air is 100 %. Interpretation: normal. Counseling: I had a detailed discussion with the patient and/or guardian regarding: the historical points, exam findings, and any diagnostic results supporting the discharge/admit diagnosis, lab results, the need for outpatient follow up, a family practitioner, to return to the emergency department if symptoms worsen or persist or if there are any questions or concerns that arise at home. ED course: Patient hemodynamically stable and without any acute respiratory compromise. Discussed with her to treat symptomatically at this time we will send her home with nausea medicine and if she were to run fever to do Tylenol, Motrin. Otherwise if she were to worsen at any point time to come back for further evaluation. Discussed with patient things to look for are uncontrolled vomiting diarrhea with dehydration and respiratory compromise. Patient good with all this and will follow up and/or come back if needed.. 03/06 17:51 Order name: COVID-19 SARS RT PCR (Document "Date of Onset" if Symptomatic); Complete bd Time: 19:47 03/06 17:51 Order name: Influenza Screen (a \\T\\ B); Complete Time: 19:22 bd Administered Medications: No medications were administered Disposition Summary: 03/06/22 19:46 Discharge Ordered Location: Home jr8 Problem: new jr8 Symptoms: have improved jr8 Condition: Stable jr8 Diagnosis - SARS-associated coronavirus as the cause of diseases classified elsewhere jr8 Followup: jr8 - With: Private Physician - When: 2 - 3 days - Reason: Recheck today's complaints, Continuance of care, Re-evaluation by your physician Discharge Instructions: - Discharge Summary Sheet jr8 - COVID-19 jr8 Forms: - Medication Reconciliation Form jr8 - Thank You Letter jr8 - Antibiotic Education jr8 - Prescription Opioid Use jr8 Prescriptions: - Zofran 4 mg Oral Tablet - take 1 tablet by ORAL route every 12 hours As needed; 20 tablet; Refills: 0, jr8 Product Selection Permitted Addendum: 03/09/2022 07:06 Co-signature as Attending Physician, Edmar Romo MD I agree with the assessment and k plan of care. Signatures: Dispatcher [employer] EDMS Edmar Romo MD MD [facility] Brandan Sellers PA PA jr8 Stef Talley RN RN jb4 Corrections: (The following items were deleted from the chart) 03/06 17:53 17:52 COVID-19/FLU [id number] ordered. EDMS EDMS
[2022-03-06 20:31] VITALS: BP 120/70; TEMP 98.4; O2SAT 100
== END 2022-03-06 20:17 | disposition home or self-care (01) ==
LOC: ER 16:38
DX: U07.1 COVID-19 (principal)
CPT/HCPCS: 87804 ×2; 99282; U0003